=== PATIENT | female | born 1995 | race Hispanic/Latino ===

== ENCOUNTER 2017-06-30 14:51 | Inpatient (IN) | payer MEDICAID ==
[2017-06-30 15:48] LABS: APPEARANCE,URINE Cloudy (CLEAR); BILIRUBIN,URINE Negative (NEGATIVE); COLOR,URINE Yellow (YELLOW); GLUCOSE, URINE (UA) Negative (NEGATIVE); HEMATOCRIT 36.8 % (36-48); KETONES,URINE Negative (NEGATIVE); LEUKOCYTE ESTERASE ,URINE Moderate (NEGATIVE); MEAN CORPUSCULAR HEMOGLOBIN 24.3 pg (27.0-33.0); MEAN CORPUSCULAR HGB CONC 32.3 g/dL (32.0-36.0); MEAN CORPUSCULAR VOLUME 75.4 fL (79-99); NITRATE,URINE Negative (NEGATIVE); NUCLEATED RED BLOOD CELLS 0.1 % (0.0-0.19); OCCULT BLOOD,URINE Large (NEGATIVE); PLATELET COUNT (AUTO) 317 K/uL (130-400); PROTEIN,URINE Negative (NEGATIVE); RED BLOOD CELL COUNT(AUTO) 4.88 MIL/uL (4.00-5.50); RED CELL DISTRIBUTION WIDTH 16.2 % (11.0-15.5); UROBILINOGEN,URINE 0.2 mg/dL (0.2-1.0)
[2017-06-30 15:54] LABS: CREATININE 0.6 mg/dL (0.5-1.5); POTASSIUM 3.9 mmol/L (3.5-5.1)
[2017-06-30 15:56] LABS: BACTERIA,URINE None Seen /HPF (None Seen); INR 0.86 (0.85-1.15); PARTIAL THROMBOPLASTIN TIME 27.1 SEC (26.3-35.5); PROTHROMBIN TIME 9.1 SEC (9.6-11.6); RBC,URINE 26-50 /HPF (0-1)
[2017-06-30 16:01] LABS: ALBUMIN 2.6 g/dL (3.5-5.0); BILIRUBIN,TOTAL 0.3 mg/dL (0.2-1.0); TOTAL PROTEIN, SERUM 7.1 g/dL (6.0-8.3); URIC ACID 4.9 mg/dL (2.6-7.2)
[2017-06-30] MEDS ORDERED: LACTATED RINGERS 500 ML 500 ML IV PRN (17:15)
[2017-06-30] MEDS ORDERED: NALOXONE HCL 0.4 MG/1 ML ML IV PRN (17:15)
[2017-06-30] MEDS: DINOPROSTONE 10 MG VAGINAL SUPP VG SCH (17:15)
[2017-06-30] MEDS ORDERED: OXYTOCIN-LR 20 UNITS/1000 ML 1,000 ML IV SCH (17:15)
[2017-06-30] MEDS ORDERED: PROMETHAZINE HCL 25 MG/ML 1ML AMPULE IM PRN (17:15)
[2017-06-30] MEDS ORDERED: EPHEDRINE SULFATE 50 MG/ML AMPULE IVP PRN (17:15)
[2017-06-30] MEDS ORDERED: DINOPROSTONE 10 MG VAGINAL SUPP ONE (17:23)
[2017-07-01] MEDS: MEPERIDINE-PF 50 MG/ML SYG IVP PRN ×2 (01:54→18:06)
[2017-07-01] MEDS: LACTATED RINGERS 1000ML 1,000 ML IV PRN ×3 (02:04→18:06)
[2017-07-01] MEDS ORDERED: ROPIVACAINE 0.2%200ML EPIDURAL 100 ML EP SCH (02:45)
[2017-07-01] MEDS ORDERED: OXYTOCIN 10 USP UNITS/ML 20 UNIT in LACTATED RINGERS 1000ML 1,000 ML IV SCH (05:00)
[2017-07-01] MEDS ORDERED: LACTATED RINGERS 1000ML 1,000 ML IV ONE (06:04)
[2017-07-01] MEDS ORDERED: OXYTOCIN 10 USP UNITS/ML ONE ×2 (06:05→14:42)
[2017-07-01] MEDS ORDERED: LIDOCAINE HCL 2% 20ML ONE (12:35)
[2017-07-01] MEDS ORDERED: ACETAMINOPHEN 325 MG TAB PO PRN (14:30)
[2017-07-01] MEDS ORDERED: DIPH,PERTUSS(ACELL),TET VAC/PF 0.5 ML VIAL IM PRN (14:30)
[2017-07-01] MEDS ORDERED: BENZOCAINE/LANOLIN/ALOE VERA 60 ML AEROSOL TP PRN (14:30)
[2017-07-01] MEDS ORDERED: MEASLES/MUMPS/RUBELLA VACCINE, LIVE 0.5 ML/VIAL SQ PRN (14:30)
[2017-07-01] MEDS ORDERED: WITCH HAZEL 1 PAD TP PRN (14:30)
[2017-07-01] MEDS ORDERED: LANOLIN 30GM OINTMENT TP PRN (14:30)
[2017-07-01] MEDS: IBUPROFEN 800 MG TAB PO PRN ×2 (14:47→23:43)
[2017-07-01 15:49] VITALS: BP 133/72
[2017-07-01] MEDS ORDERED: PNV1TABL17 PO (16:33)
[2017-07-01 19:30] VITALS: BP 117/52
[2017-07-01] MEDS: DOCUSATE SODIUM 100 MG CAP PO SCH (20:46)
[2017-07-01 23:07] VITALS: BP 103/61
[2017-07-02 03:17] VITALS: BP 97/58
[2017-07-02 07:07] LABS: HEMATOCRIT 28.1 % (36-48); MEAN CORPUSCULAR HEMOGLOBIN 25.2 pg (27.0-33.0); MEAN CORPUSCULAR HGB CONC 33.2 g/dL (32.0-36.0); MEAN CORPUSCULAR VOLUME 75.9 fL (79-99); PLATELET COUNT (AUTO) 233 K/uL (130-400); RED CELL DISTRIBUTION WIDTH 16.7 % (11.0-15.5); WHITE BLOOD COUNT (AUTO) 18.3 K/uL (4.8-10.8)
[2017-07-02 07:24] LABS: HEPATITIS Bs ANTIGEN SCREEN P Negative (Negative)
[2017-07-02 07:32] VITALS: BP 110/71
[2017-07-02] MEDS: DOCUSATE SODIUM 100 MG CAP PO SCH ×2 (09:13→21:39)
[2017-07-02] MEDS: IBUPROFEN 800 MG TAB PO PRN ×2 (09:13→19:01)
[2017-07-02 11:42] VITALS: BP 94/56
[2017-07-02 15:43] VITALS: BP 110/57
[2017-07-02] MEDS: DINOPROSTONE 10 MG VAGINAL SUPP VG SCH (17:15)
[2017-07-02 20:10] VITALS: BP 98/56
[2017-07-02 23:10] VITALS: BP 102/58
[2017-07-03 02:58] VITALS: BP 99/57
[2017-07-03 07:44] VITALS: BP 127/82
[2017-07-03] MEDS: IBUPROFEN 800 MG TAB PO PRN (09:34)
[2017-07-03] MEDS: DOCUSATE SODIUM 100 MG CAP PO SCH (09:34)
[2017-07-03 11:24] VITALS: BP 117/69
== END 2017-07-03 12:55 | disposition home or self-care (01) | DRG 560 ==
LOC: LDH 14:51 → OBSVTOIN 07-01 04:11 → WSH 07-01 15:45
PROVIDERS: ADMIT Obstetrics & Gynecology; ATTEND Obstetrics & Gynecology
PROC: 10E0XZZ Delivery of Products of Conception, External Approach (ICD-10-PCS; principal; 2017-07-01)
PROC: 0KQM0ZZ Repair Perineum Muscle, Open Approach (ICD-10-PCS; 2017-07-01)
PROC: 10907ZC Drainage of Amniotic Fluid, Therapeutic from Products of Conception, Via Natural or Artificial Opening (ICD-10-PCS; 2017-07-01)
PROC: 3E0P7VZ Introduction of Hormone into Female Reproductive, Via Natural or Artificial Opening (ICD-10-PCS; 2017-07-01)
PROC: 3E033VJ Introduction of Other Hormone into Peripheral Vein, Percutaneous Approach (ICD-10-PCS; 2017-07-01)
PROC: 3E0R3BZ Introduction of Anesthetic Agent into Spinal Canal, Percutaneous Approach (ICD-10-PCS; 2017-07-01)
PROC: 00HU33Z Insertion of Infusion Device into Spinal Canal, Percutaneous Approach (ICD-10-PCS; 2017-07-01)
PROC: 3E0234Z Introduction of Serum, Toxoid and Vaccine into Muscle, Percutaneous Approach (ICD-10-PCS; 2017-07-01)
PROC: 3E0134Z Introduction of Serum, Toxoid and Vaccine into Subcutaneous Tissue, Percutaneous Approach (ICD-10-PCS; 2017-07-01)
DX: O14.94 Unspecified pre-eclampsia, complicating childbirth (principal); O70.1 Second degree perineal laceration during delivery; Z37.0 Single live birth; Z3A.39 39 weeks gestation of pregnancy; Z88.0 Allergy status to penicillin; Z88.8 Allergy status to other drugs, medicaments and biological substances
CPT/HCPCS: 36415; 76805; 80053; 81001; 84550; 85027; 85384; 85610; 85730; 86592; 86850; 86900; 86901; 87340; 90715; A4314; A4606; G0378; J2175; J2550; J2590; J3490; J7120

== ENCOUNTER 2020-06-24 13:00 | Emergency (ER) | payer MEDICAID ==
[~2020-06-24 13:00] MED LIST: PNV1TABL17 PO
[2020-06-24 13:31] LABS: APPEARANCE,URINE Cloudy (CLEAR); BASOPHILS % (AUTO) 0.3 % (0.0-5.0); BILIRUBIN,URINE Negative (NEGATIVE); COLOR,URINE Yellow (YELLOW); EOSINOPHILS % (AUTO) 0.9 % (0.0-8.0); GLUCOSE, URINE (UA) TRACE mg/dL (NEGATIVE); HEMATOCRIT 33.7 % (36-48); KETONES,URINE Negative (NEGATIVE); LEUKOCYTE ESTERASE ,URINE Small (NEGATIVE); LYMPHOCYTES % (AUTO) 14.8 % (21.0-51.0); MEAN CORPUSCULAR HEMOGLOBIN 24.6 pg (27.0-33.0); MEAN CORPUSCULAR VOLUME 76.8 fL (79-99); NEUTROPHILS % (AUTO) 75.8 % (40.0-77.0); NITRATE,URINE Negative (NEGATIVE); OCCULT BLOOD,URINE Negative (NEGATIVE); PLATELET COUNT (AUTO) 292 K/uL (130-400); PROTEIN,URINE Trace mg/dL (NEGATIVE); RED BLOOD CELL COUNT(AUTO) 4.39 MIL/uL (4.00-5.50); RED CELL DISTRIBUTION WIDTH 14.5 % (11.0-15.5); UROBILINOGEN,URINE 0.2 mg/dL (0.2-1.0); WHITE BLOOD COUNT (AUTO) 13.4 K/uL (4.8-10.8)
[2020-06-24 13:41] LABS: CREATININE 0.6 mg/dL (0.5-1.5); POTASSIUM 3.3 mmol/L (3.5-5.1)
[2020-06-24 13:43] LABS: BACTERIA,URINE Few /HPF (None Seen); RBC,URINE 0-1 /HPF (0-1); SQUAMOUS EPITHELIAL CELL,UR Moderate /HPF (0-2)
[2020-06-24 13:44] LABS: MUCUS,URINE Few LPF (None Seen)
[2020-06-24 14:07] LABS: ALBUMIN 2.7 g/dL (3.5-5.0); BILIRUBIN,TOTAL 0.2 mg/dL (0.2-1.0); TOTAL PROTEIN, SERUM 6.8 g/dL (6.0-8.3)
[2020-06-24] MEDS ORDERED: SODIUM CHLORIDE 0.9% 1000ML 1,000 ML IV ONE (14:16)
[2020-06-24] MEDS ORDERED: NITROFURANTOIN MONOHYD/M-CRYST 100 MG CAPSULE PO ONE (14:16)
[2020-06-24] MEDS ORDERED: POTASSIUM CHLORIDE 20 MEQ ERTAB PO ONE (16:00)
== END 2020-06-24 18:08 | disposition home or self-care (01) ==
LOC: EDH 13:00
DX: O23.33 Infections of other parts of urinary tract in pregnancy, third trimester (principal); O99.283 Endocrine, nutritional and metabolic diseases complicating pregnancy, third trimester; E86.0 Dehydration; Z88.1 Allergy status to other antibiotic agents; Z3A.31 31 weeks gestation of pregnancy
CPT/HCPCS: 36415; 80053; 81001; 84439; 84481; 84484; 84702; 85025; 93005; 96360; 99284; J7030

== ENCOUNTER 2020-08-25 18:05 | Inpatient (IN) | payer MEDICAID ==
[~2020-08-25] VITALS: Ht 149.9 cm; Wt 83.9 kg
[2020-08-25] MEDS ORDERED: NALOXONE HCL 0.4 MG/1 ML ML IV PRN (18:30)
[2020-08-25] MEDS ORDERED: LACTATED RINGERS 500 ML 500 ML IV PRN (18:30)
[2020-08-25] MEDS ORDERED: EPHEDRINE SULFATE 50 MG/ML AMPULE IVP PRN (18:30)
[2020-08-25] MEDS ORDERED: MEPERIDINE-PF 50 MG/ML SYG IVP PRN (19:00)
[2020-08-25] MEDS ORDERED: PROMETHAZINE HCL 25 MG/ML 1ML AMPULE IM PRN (19:00)
[2020-08-25] MEDS ORDERED: ROPIVACAINE 0.2% 100ML VIAL 100 ML EP SCH (19:00)
[2020-08-25] MEDS: DINOPROSTONE 10 MG VAGINAL SUPP VG SCH (19:11)
[2020-08-25] MEDS ORDERED: OXYTOCIN-LR 20 UNITS/1000 ML 1,000 ML IV SCH (19:15)
[2020-08-25 19:26] LABS: HEMATOCRIT 32.7 % (36-48); MEAN CORPUSCULAR HEMOGLOBIN 22.5 pg (27.0-33.0); MEAN CORPUSCULAR HGB CONC 31.2 g/dL (32.0-36.0); MEAN CORPUSCULAR VOLUME 72.2 fL (79-99); NUCLEATED RED BLOOD CELLS 0.3 % (0.0-0.19); PLATELET COUNT (AUTO) 368 K/uL (130-400); RED BLOOD CELL COUNT(AUTO) 4.53 MIL/uL (4.00-5.50); RED CELL DISTRIBUTION WIDTH 17.2 % (11.0-15.5); WHITE BLOOD COUNT (AUTO) 11.9 K/uL (4.8-10.8)
[2020-08-25] MEDS: LACTATED RINGERS 1000ML 1,000 ML IV PRN (20:26)
[2020-08-26] MEDS: LACTATED RINGERS 1000ML 1,000 ML IV PRN ×2 (03:09→19:36)
[2020-08-26] MEDS ORDERED: OXYTOCIN-LR 20 UNITS/1000 ML 1,000 ML IV SCH (08:00)
[2020-08-26 09:48] LABS: APPEARANCE,URINE TURBID (CLEAR); BILIRUBIN,URINE NEGATIVE (NEGATIVE); COLOR,URINE YELLOW (YELLOW); GLUCOSE, URINE (UA) NEGATIVE (NEGATIVE); KETONES,URINE 5 mg/dL (NEGATIVE); LEUKOCYTE ESTERASE ,URINE NEGATIVE (NEGATIVE); NITRATE,URINE NEGATIVE (NEGATIVE); OCCULT BLOOD,URINE NEGATIVE (NEGATIVE); PROTEIN,URINE 30 mg/dL (NEGATIVE); UROBILINOGEN,URINE 0.2 mg/dL (0.2-1.0)
[2020-08-26 10:04] LABS: BACTERIA,URINE Few /HPF (None Seen); RBC,URINE 0-1 /HPF (0-1); WBC,URINE 0-1 /HPF (0-1)
[2020-08-26 10:05] LABS: AMORPHOUS SEDIMENT,UR Many /LPF (None Seen); CALCIUM OXALATE CRYSTALS,UR Moderate /LPF (None Seen); SQUAMOUS EPITHELIAL CELL,UR 0-2 /HPF (0-2)
[2020-08-26] MEDS ORDERED: DINOPROSTONE 10 MG VAGINAL SUPP VG SCH (19:00)
[2020-08-26] MEDS: DINOPROSTONE 10 MG VAGINAL SUPP VG SCH (19:36)
[2020-08-26 19:37] VITALS: BP 107/59
[2020-08-27] MEDS ORDERED: OXYTOCIN-LR 20 UNITS/1000 ML 1,000 ML IV SCH ×2 (08:15→17:45)
[2020-08-27 15:13] LABS: HEPATITIS Bs ANTIGEN SCREEN P Negative (Negative)
[2020-08-27] MEDS ORDERED: LIDOCAINE HCL 1% 20 ML VIAL ONE (16:48)
[2020-08-27] MEDS ORDERED: METHYLERGONOVINE MALEATE 0.2 MG/1 ML ML ONE (16:49)
[2020-08-27] MEDS ORDERED: ACETAMINOPHEN WITH CODEINE 1 TAB TAB PO PRN (17:45)
[2020-08-27] MEDS ORDERED: LANOLIN 30GM OINTMENT TP PRN (17:45)
[2020-08-27] MEDS ORDERED: MEASLES/MUMPS/RUBELLA VACCINE, LIVE 0.5 ML/VIAL SQ PRN (17:45)
[2020-08-27] MEDS ORDERED: DIPH,PERTUSS(ACELL),TET VAC/PF 0.5 ML VIAL IM PRN (17:45)
[2020-08-27] MEDS ORDERED: WITCH HAZEL 1 PAD TP PRN (17:45)
[2020-08-27] MEDS ORDERED: BENZOCAINE/LANOLIN/ALOE VERA 60 ML AEROSOL TP PRN (17:45)
[2020-08-27] MEDS ORDERED: ACETAMINOPHEN 325 MG TAB PO PRN (17:45)
[2020-08-27] MEDS: IBUPROFEN 600 MG TABLET PO PRN (20:02)
[2020-08-27] MEDS: DOCUSATE SODIUM 100 MG CAP PO SCH (20:33)
[2020-08-27 21:30] VITALS: BP 102/50
[2020-08-28 00:04] VITALS: BP 108/57
[2020-08-28 04:00] VITALS: BP 104/56
[2020-08-28] MEDS: IBUPROFEN 600 MG TABLET PO PRN ×2 (04:06→13:51)
[2020-08-28] MEDS ORDERED: PREN-188 PO (04:41)
[2020-08-28 07:02] LABS: HEMATOCRIT 31.3 % (36-48); MEAN CORPUSCULAR HEMOGLOBIN 21.7 pg (27.0-33.0); MEAN CORPUSCULAR VOLUME 72.1 fL (79-99); RED BLOOD CELL COUNT(AUTO) 4.34 MIL/uL (4.00-5.50); RED CELL DISTRIBUTION WIDTH 17.6 % (11.0-15.5); WHITE BLOOD COUNT (AUTO) 13.8 K/uL (4.8-10.8)
[2020-08-28 07:27] VITALS: BP 104/65
[2020-08-28] MEDS: DOCUSATE SODIUM 100 MG CAP PO SCH (08:55)
[2020-08-28 11:25] VITALS: BP 105/61
[2020-08-28] MEDS ORDERED: LIDOCAINE 5% TOPICAL PATCH TP SCH (11:30)
[2020-08-28 16:22] VITALS: BP 109/66
[2020-08-28] MEDS ORDERED: IBUP-2077 PO (17:12)
[2020-08-28] MEDS ORDERED: IBUP-2071 PO (17:12)
[2020-08-28] MEDS ORDERED: DOCU-116 PO (17:12)
== END 2020-08-28 18:20 | disposition home or self-care (01) | DRG 560 ==
LOC: LDH 18:05 → WSH 08-28 06:58
PROVIDERS: ADMIT Obstetrics & Gynecology; ATTEND Obstetrics & Gynecology
PROC: 10E0XZZ Delivery of Products of Conception, External Approach (ICD-10-PCS; principal; 2020-08-27)
PROC: 3E0234Z Introduction of Serum, Toxoid and Vaccine into Muscle, Percutaneous Approach (ICD-10-PCS; 2020-08-27)
PROC: 0KQM0ZZ Repair Perineum Muscle, Open Approach (ICD-10-PCS; 2020-08-27)
PROC: 3E033VJ Introduction of Other Hormone into Peripheral Vein, Percutaneous Approach (ICD-10-PCS; 2020-08-27)
PROC: 3E0P7VZ Introduction of Hormone into Female Reproductive, Via Natural or Artificial Opening (ICD-10-PCS; 2020-08-27)
PROC: 10907ZC Drainage of Amniotic Fluid, Therapeutic from Products of Conception, Via Natural or Artificial Opening (ICD-10-PCS; 2020-08-27)
PROC: 3E0134Z Introduction of Serum, Toxoid and Vaccine into Subcutaneous Tissue, Percutaneous Approach (ICD-10-PCS; 2020-08-27)
PROC: 3E0R3BZ Introduction of Anesthetic Agent into Spinal Canal, Percutaneous Approach (ICD-10-PCS; 2020-08-27)
PROC: 00HU33Z Insertion of Infusion Device into Spinal Canal, Percutaneous Approach (ICD-10-PCS; 2020-08-27)
DX: O76 Abnormality in fetal heart rate and rhythm complicating labor and delivery (principal); O99.42 Diseases of the circulatory system complicating childbirth; O70.1 Second degree perineal laceration during delivery; Z37.0 Single live birth; Z3A.39 39 weeks gestation of pregnancy; Z23 Encounter for immunization; Z88.0 Allergy status to penicillin; Z88.2 Allergy status to sulfonamides; Z88.8 Allergy status to other drugs, medicaments and biological substances
CPT/HCPCS: 36415; 81001; 85027; 86592; 86701; 86850; 86900; 86901; 87340; 87390; 90715; A4314; A4606; G0378; J2210; J2590; J2795; J7120

== ENCOUNTER 2023-02-14 18:43 | Observation (INO) | payer MEDICAID ==
[~2023-02-14] VITALS: Ht 149.9 cm; Wt 84.8 kg
[~2023-02-14 18:43] MED LIST changes: +FERRALET PO; +NITR100C4 PO; -PNV1TABL17 PO; +PREN-188 PO
[2023-02-14 18:45] VITALS: O2SAT 98
[2023-02-14 18:46] VITALS: BP 127/96; PULSE 64; RESP 18
[2023-02-14 19:10] LABS: APPEARANCE,URINE CLOUDY (CLEAR); BILIRUBIN,URINE NEGATIVE (NEGATIVE); COLOR,URINE YELLOW (YELLOW); GLUCOSE, URINE (UA) NEGATIVE (NEGATIVE); KETONES,URINE NEGATIVE (NEGATIVE); LEUKOCYTE ESTERASE ,URINE NEGATIVE Leu/uL (NEGATIVE); NITRATE,URINE NEGATIVE (NEGATIVE); OCCULT BLOOD,URINE MODERATE (NEGATIVE); PROTEIN,URINE 50 mg/dL (NEGATIVE); UROBILINOGEN,URINE 0.2 mg/dL (0.2-1.0)
[2023-02-14 19:11] LABS: ADD UA MICROSCOPIC YES
[2023-02-14 19:19] LABS: BACTERIA,URINE FEW /HPF (None Seen); CALCIUM OXALATE CRYSTALS,UR RARE /LPF (None Seen); MUCUS,URINE MOD LPF (None Seen); RBC,URINE TNTC /HPF (0-1); SQUAMOUS EPITHELIAL CELL,UR MANY /HPF (0-2)
[2023-02-14 19:23] LABS: AMPHET/METH SCREEN,URINE NEGATIVE (NEGATIVE); BARBITURATE SCREEN, URINE NEGATIVE (NEGATIVE); BENZODIAZEPINES SCREEN,URINE NEGATIVE (NEGATIVE); CANNABINOID SCREEN,URINE NEGATIVE (NEGATIVE); COCAINE SCREEN,URINE NEGATIVE (NEGATIVE); OPIATE SCREEN,URINE NEGATIVE (NEGATIVE); PHENCYCLIDINE SCREEN,URINE NEGATIVE (NEGATIVE)
[2023-02-14] MEDS ORDERED: LACTATED RINGERS 1000ML 1,000 ML IV SCH (19:30)
== END 2023-02-14 21:00 | disposition home or self-care (01) ==
LOC: EDH 18:43 → LDH 18:44
PROVIDERS: ADMIT Obstetrics & Gynecology; ATTEND Obstetrics & Gynecology
DX: O99.891 Other specified diseases and conditions complicating pregnancy (principal); M54.50 Low back pain, unspecified; Z3A.35 35 weeks gestation of pregnancy
CPT/HCPCS: 59025; 96360; 80305; 81001; G0378 ×2; G0379; J7120

== ENCOUNTER 2023-03-02 13:56 | Observation (INO) | payer MEDICAID ==
[~2023-03-02] VITALS: Ht 149.9 cm; Wt 84.4 kg
[2023-03-02] MEDS ORDERED: LACTATED RINGERS 1000ML 1,000 ML IV PRN (14:30)
[2023-03-02 14:56] VITALS: BP 108/57
[2023-03-15] MEDS ORDERED: PREN1TAB80 PO (01:13)
[2023-03-15] MEDS ORDERED: PREN-226 PO (20:52)
== END 2023-03-02 15:00 | disposition home or self-care (01) ==
LOC: LDH 13:56
PROVIDERS: ADMIT Obstetrics & Gynecology; ATTEND Obstetrics & Gynecology
DX: O36.8330 Maternal care for abnormalities of the fetal heart rate or rhythm, third trimester, not applicable or unspecified (principal); Z3A.37 37 weeks gestation of pregnancy
CPT/HCPCS: 59025; 76819; G0378; G0379

== ENCOUNTER 2024-11-13 12:55 | Emergency (ER) | payer SELFPAY ==
[~2024-11-13] VITALS: Ht 149.9 cm; Wt 72.6 kg
[~2024-11-13 12:55] MED LIST changes: -FERRALET PO; -NITR100C4 PO; -PREN-188 PO; +PREN-226 PO
[2024-11-13] MEDS: acetaMINOPHEN 500 MG TABLET PO ONE (14:28)
--- NOTE | 2024-11-13 15:11 | HMCIMG ---
Exam Type: ELBOW COMP 3+VWS RT Clinical Information: pain Comparison: None Findings: The bone examination is unremarkable. No fractures or dislocations are seen. No radiopaque foreign bodies are noted. Soft tissues are preserved. IMPRESSION: Normal examination.
--- NOTE | 2024-11-13 15:17 | HMCIMG ---
Exam Type: SHOULDER COMP 2+VWS RT Clinical Information: pain Comparison: None FINDINGS: The examination is unremarkable. Specifically, the glenohumeral and acromioclavicular joints are preserved. Visualized portions of the humerus, the scapula, and the clavicle as well as the upper ribcage are unremarkable. No pulmonary pathology is noted in the visualized portions of the upper lobe. The soft tissues are preserved. There are no other gross abnormalities. IMPRESSION: NORMAL EXAMINATION.
--- NOTE | 2024-11-13 15:32 | ERN ---
General Chief Complaint: Elbow Problem Stated Complaint: FELL YESTERDAY HURT ELBOW Time Seen by MD: 13:02 Time Seen by Midlevel: 13:02 Source: patient History of Present Illness Initial Comments 30 y/o female presents to the ED due to right elbow pain. Patient reports she slipped and fell yesterday landing on her right side. Denies any head injuries, LOC, or further associated symptoms. Pt complaning of right elbow and shoulder pain but denies further associated symptoms. Denies significant PMHx. Allergies: Coded Allergies: amoxicillin (Unverified Allergy, Unknown, RASH, 06/18/17) sulfamethoxazole (Unverified Allergy, Unknown, RASH, 06/18/17) trimethoprim (Unverified Allergy, Unknown, RASH, 06/18/17) Home Meds Reported Medications Vit No.179/Iron/Folic ( Tablet) 1 Each Tablet, 1 EACH PO DAILYBKFST, TAB 03/15/23 Past Medical History Past Medical History: No Pertinent History Past Surgical History: None Female( History) LMP: November 11, 2024 : 3 Para: 2 Aborts: 0 ROS Dictation Constitutional: Negative for fever,chills, and weight loss Eyes: Negative for injury, pain,redness, and discharge ENT: Negative for injury,pain or swelling Cardiovascular: Negative for chest pain, palpitations, and edema Respiratory: Negative for shortness of breath, cough, and wheezing, Abdomen/GI: Negative for abdominal pain, nausea, vomiting, diarrhea, and constipation Back: Negative for injury and pain : Negative for painful urination, bleeding or discharge MS/Extremity: Positive for right elbow pain, right shoulder pain Negative for injury and deformity Skin: Negative for rash, and discoloration Neuro: Negative for headache, weakness, numbness, tingling, and seizure Psych: Negative for suicide ideation, homicidal ideation, and hallucinations Physical Exam Physical Exam Dictation General: awake, alert, no acute distress Head/Face: Normocephalic, atraumatic Eyes: PERRL, EOMI, normal conjunctiva ENT: oral cavity clear, TMs clear, oral mucosa moist Neck: Supple, normal range of motion Cardiovascular: RRR, normal S1/S2 Respiratory: CTAB, no respiratory distress, no rales or wheezes Abdomen: Soft, non-tender, non-distended, normal bowel sounds, no guarding or rebound. Skin: Warm, dry, normal turgor, no rash MS/Extremity: Pulses equal, no cyanosis, neurovascular intact, Active ROM of the elbow restricted by pain, tenderness to the medial aspect of the elbow, mild tenderness to the right shoulder with full ROM Neuro: COAx4, GCS 15, strength 5/5, CN 2-12 intact, normal cerebellar exam, normal gait, Psych: Normal behavior, mood, and affect normal Results EKG/XRAY/US/CT/MRI X-RAY Comment REASON: pain ORDERING PHYSICIAN: MAHIN CLINE PROCEDURE: ELB3VW RT - ELBOW COMP 3+VWS RT Exam Type: ELBOW COMP 3+VWS RT Clinical Information: pain Comparison: None Findings: The bone examination is unremarkable. No fractures or dislocations are seen. No radiopaque foreign bodies are noted. Soft tissues are preserved. IMPRESSION: Normal examination. DICTATED BY: NORRIS ARCINIEGA MD DATE: 11/13/24 1502 REASON: pain ORDERING PHYSICIAN: MAHIN CLINE PROCEDURE: SHOL 2V RT - SHOULDER COMP 2+VWS RT Exam Type: SHOULDER COMP 2+VWS RT Clinical Information: pain Comparison: None FINDINGS: The examination is unremarkable. Specifically, the glenohumeral and acromioclavicular joints are preserved. Visualized portions of the humerus, the scapula, and the clavicle as well as the upper ribcage are unremarkable. No pulmonary pathology is noted in the visualized portions of the upper lobe. The soft tissues are preserved. There are no other gross abnormalities. IMPRESSION: NORMAL EXAMINATION. DICTATED BY: NORRIS ARCINIEGA MD DATE: 11/13/24 1515 [facility] MDM: Differential diagnosis: fracture, dislocation, sprain Rationale: 30 y/o female presents to the ED due to right elbow pain. Patient reports she slipped and fell yesterday landing on her right side. Denies any head injuries, LOC, or further associated symptoms. Pt complaining of right elbow and shoulder pain but denies further associated symptoms. Denies significant PMHx. Per physical examination pt is in no acute distress, active ROM of the elbow restricted by pain, tenderness to the medial aspect of the elbow, mild tenderness to the right shoulder with full ROM, neurovascular intact. XR of the right shoulder, and right elbow obtained reports indicate no acute findings. Elbow XR reviewed by ED physician and myself, possible intra articular fracture due to elevation of anterior fat pad noted. Pt placed on a elbow splint and sling. Pt was educated on findings and diagnosis. Referred to follow up with Ortho. Advised to follow up with PCP. Return to the ED if any worsening symptoms. Pt verbalized understanding, pt stable for discharge. There are no social concerns with this patient. I independently interpreted the test that were performed, results were reviewed by me and considered findings on radiology if ordered. Medical management and examination interpretation discussions were had by me with other qualified healthcare professionals as indicated for the patient's care. ED Course Orders Procedure Category Date Status Time Shoulder Comp 2+Vws Rt RAD 11/13/24 Resulted 13:26 Elbow Comp 3+Vws Rt RAD 11/13/24 Resulted 13:26 Acetaminophen 500mg PHA 11/13/24 Complete Tab (Tylenol 500mg T 14:00 Elbow Splint ALMA DELIA 11/13/24 Complete 15:30 Current Medications Medications (Trade) Dose Ordered Sig/Majo Route PRN Reason Start Time Stop Time Status Last Admin Dose Admin Acetaminophen (TYLenol 500MG TAB) 1,000 mg ONCE ONCE PO 11/13/24 14:00 11/13/24 14:01 DC 11/13/24 14:28 Vital Signs Date Time Temp Pulse Resp B/P (MAP) Pulse Ox O2 Delivery O2 Flow Rate FiO2 11/13/24 15:58 98.1 88 16 128/84 97 Room Air* 0 21 11/13/24 13:56 98.1 92 16 134/90 97 Room Air* 0 21 11/13/24 13:00 99.0 92 16 134/90 97 Room Air 0 DX & DISP Disposition: Discharge Departure Impression: Primary Impression: Elbow contusion Condition: Stable Additional Instructions: Discharge home. Rest. Follow up with primary care DrStella in 24 hours. Return to the ER for any acute changes or worsening symptoms. If any medications were prescribed take as directed. Okay to continue home medications unless otherwise discussed during your visit in the emergency room today. Patient was also advised to follow-up with primary care physician in 1 to 2 days for continued monitoring. Referrals: SAMUEL RAMIREZ MD (PCP) MICHAEL FAJARDO MD, JOSE A MD I performed the substantive portion of the visit. I have reviewed and personally made and approve the management plan that is documented in the notes by myself or the [facility]. I acknowledge full responsibility for the patient's management plan. MAHIN CLINE November 13, 2024 15:32
[2024-11-13 15:58] VITALS: BP 128/84; PULSE 88; RESP 16; TEMP 98.1; O2SAT 97
--- NOTE | 2024-11-13 15:58 | NUR ---
RT ELBOW SPLINT AND SLING APPLIED FOR PT , PT TOLERATED WELL
== END 2024-11-13 15:59 | disposition home or self-care (01) ==
LOC: EDH 12:55
DX: S50.01XA Contusion of right elbow, initial encounter (principal); Z88.0 Allergy status to penicillin; Z88.1 Allergy status to other antibiotic agents; Z88.2 Allergy status to sulfonamides; W01.0XXA Fall on same level from slipping, tripping and stumbling without subsequent striking against object, initial encounter; Y93.89 Activity, other specified; Y92.89 Other specified places as the place of occurrence of the external cause; Y99.8 Other external cause status
CPT/HCPCS: 29105; 73030; 73080; 99284